=== PATIENT | male | born 1945 | race Caucasian/White ===

== ENCOUNTER 2020-02-09 09:48 | Inpatient (IN) ==
[2020-02-09] MEDS ORDERED: Benzonatate 100 MG CAPSULE PO PRN (15:57)
[2020-02-09] MEDS: Metoprolol 100 MG TABLET PO SCH (20:04)
[2020-02-09] MEDS: Acetaminophen 325 MG TABLET PO PRN (20:05)
[2020-02-10 05:30] LABS: INR 1.6; Prothrombin Time 18.3 Seconds (9.4-12.1)
[2020-02-10 05:45] LABS: Alanine Aminotransferase 13 Units/L (7-52); Albumin 3.5 g/dL (3.5-5.7); Albumin/Globulin Ratio 1.1 (1.1-2.2); Alkaline Phosphatase 37 Units/L (34-104); Aspartate Amino Transferase 16 Units/L (13-39); BUN/Creatinine Ratio 22 (6-26); Bilirubin,Total 0.5 mg/dL (0.3-1.0); Blood Urea Nitrogen 15 mg/dL (8-23); Carbon Dioxide 27 mEq/L (23-29); Chloride 108 mEq/L (98-107); Globulin 3.1 g/dL (2.4-3.5); Glucose 96 mg/dL (70-105); Magnesium 1.8 mg/dL (1.6-2.6); Osmolality,Calculated 291 (280-300); Potassium 4.3 mEq/L (3.5-5.1); Sodium 140 mEq/L (136-145); Total Protein 6.6 g/dL (6.4-8.9); eGFR For African Americans > 60 (> 60); eGFR For Non-African Americans > 60 (> 60)
[2020-02-10] MEDS: Metoprolol 100 MG TABLET PO SCH ×2 (08:59→20:53)
[2020-02-10] MEDS: Ascorbic Acid 500 MG TABLET PO SCH (08:59)
[2020-02-10] MEDS: Aspirin 81 MG TAB.CHEW PO SCH (08:59)
[2020-02-10] MEDS: *HR* Enoxaparin 80 MG/0.8 ML SYRINGE SQ SCH (17:20)
[2020-02-10] MEDS ORDERED: *HR* Warfarin 7.5 MG TABLET PO ONE (18:00)
[2020-02-10] MEDS ORDERED: *HR* Warfarin 7.5 MG TABLET PO SCH (18:00)
[2020-02-10] MEDS ORDERED: Warfarin perPT PO PRN (18:00)
[2020-02-10] MEDS: Acetaminophen 325 MG TABLET PO PRN (20:53)
[2020-02-11] MEDS: *HR* Enoxaparin 80 MG/0.8 ML SYRINGE SQ SCH (05:15)
[2020-02-11 05:30] LABS: INR 1.5; Prothrombin Time 16.9 Seconds (9.4-12.1)
[2020-02-11] MEDS: Ascorbic Acid 500 MG TABLET PO SCH (07:36)
[2020-02-11] MEDS: Metoprolol 100 MG TABLET PO SCH ×2 (07:36→08:30)
[2020-02-11] MEDS: Aspirin 81 MG TAB.CHEW PO SCH (07:36)
[2020-02-11] MEDS: Acetaminophen 325 MG TABLET PO PRN (07:36)
[2020-02-11 08:13] VITALS: BP 110/81
[2020-02-11 08:49] LABS: Basophils % 0.4 %; Eosinophils # 0.2 K/mcL (0.0-0.6); Eosinophils % 1.9 %; Hematocrit 44.2 % (37.5-50.1); Hemoglobin 15.2 g/dL (12.9-16.9); Immature Granulocytes % 0.3 % (0-4); Lymphocytes # 2.1 K/mcL (0.6-4.6); Lymphocytes % 21.7 %; Mean Corpuscular HGB Conc 34.4 g/dL (31.6-35.5); Mean Corpuscular Volume 101.8 fL (83.0-100.0); Mean Platelet Volume 9.3 fL (9.4-12.4); Monocytes # 0.7 K/mcL (0.0-1.3); Monocytes % 7.4 %; Neutrophils # 6.6 K/mcL (1.6-8.9); Platelet Count 252 K/mcL (140-400); Red Blood Count 4.34 M/mcL (4.19-5.50); Red Cell Distribution Width 12.3 % (11.5-14.5); Segmented Neutrophils % 68.3 %; White Blood Count 9.6 K/mcL (4.3-11.1)
[2020-02-11 09:06] LABS: BUN/Creatinine Ratio 19 (6-26); Blood Urea Nitrogen 17 mg/dL (8-23); Carbon Dioxide 27 mEq/L (23-29); Chloride 107 mEq/L (98-107); Glucose 132 mg/dL (70-105); Magnesium 1.7 mg/dL (1.6-2.6); Osmolality,Calculated 293 (280-300); Potassium 3.7 mEq/L (3.5-5.1); Sodium 140 mEq/L (136-145); Troponin I < 0.03 ng/mL (< 0.04); eGFR For African Americans > 60 (> 60); eGFR For Non-African Americans > 60 (> 60)
[2020-02-11] MEDS ORDERED: *HR* Warfarin 5 MG TABLET PO SCH (18:00)
== END 2020-02-11 10:42 | disposition short-term general hospital (02) | DRG 57 ==
LOC: INPGRE 16:38
PROVIDERS: ADMIT Family Medicine; ATTEND Family Medicine

== ENCOUNTER 2021-07-08 15:46 | Inpatient (IN) ==
[2021-07-08] MEDS ORDERED: Warfarin perPT PO PRN (18:00)
[2021-07-09] MEDS: Metoprolol 100 MG TABLET PO SCH ×3 (01:48→20:49)
[2021-07-09] MEDS ORDERED: Albuterol 2.5 MG/3 ML NEBULIZER IH SCH (04:00)
[2021-07-09] MEDS: Budesonide Neb 0.5 MG/2 ML IH SCH ×4 (04:22→21:26)
[2021-07-09] MEDS: Vitamin B Complex/Vit C/Vit E 1 EACH TABLET PO SCH (08:33)
[2021-07-09] MEDS: Aspirin 81 MG TAB.CHEW PO SCH (08:33)
[2021-07-09] MEDS: Fluconazole 100 MG TABLET PO SCH (08:33)
[2021-07-09] MEDS: *HR* Amiodarone 200 MG TABLET PO SCH (08:33)
[2021-07-09] MEDS: DilTIAZem CD (24hr) 120 MG CAP.ER.24H PO SCH (08:33)
[2021-07-09] MEDS: Cholecalciferol (D-3) 1,000 UNIT (25MCG) TABLET PO SCH (08:33)
[2021-07-09] MEDS: MAGNESIUM 30 MG PO SCH (08:34)
[2021-07-09] MEDS: Zinc Sulfate 220 MG CAPSULE PO SCH (08:34)
[2021-07-09] MEDS: Ascorbic Acid 500 MG TABLET PO SCH (08:34)
[2021-07-09] MEDS ORDERED: Albuterol 2.5 MG/3 ML NEBULIZER ONE (08:44)
[2021-07-09 10:38] LABS: INR 2.5; Prothrombin Time 27.7 Seconds (9.4-12.1)
[2021-07-09] MEDS: Albuterol 2.5 MG/3 ML NEBULIZER IH SCH ×3 (11:00→21:26)
[2021-07-09] MEDS ORDERED: *HR* Warfarin 0.5 MG TABLET PO ONE (18:00)
[2021-07-09] MEDS: Melatonin 3 MG TABLET PO SCH (20:49)
[2021-07-10] MEDS: Budesonide Neb 0.5 MG/2 ML IH SCH ×2 (04:13→08:33)
[2021-07-10] MEDS: Albuterol 2.5 MG/3 ML NEBULIZER IH SCH ×2 (04:13→08:33)
[2021-07-10 06:09] LABS: Basophils # 0.1 K/mcL (0.0-0.2); Basophils % 0.4 %; Eosinophils # 0.3 K/mcL (0.0-0.6); Eosinophils % 1.4 %; Hematocrit 26.2 % (37.5-50.1); Hemoglobin 8.3 g/dL (12.9-16.9); Immature Granulocytes % 4.8 % (0-4); Lymphocytes # 2.9 K/mcL (0.6-4.6); Lymphocytes % 16.4 %; Mean Corpuscular HGB Conc 31.7 g/dL (31.6-35.5); Mean Corpuscular Hemoglobin 29.3 pg (28.0-33.3); Mean Corpuscular Volume 92.6 fL (83.0-100.0); Mean Platelet Volume 8.8 fL (9.4-12.4); Monocytes # 1.3 K/mcL (0.0-1.3); Monocytes % 7.5 %; Neutrophils # 12.3 K/mcL (1.6-8.9); Nucleated Red Blood Cells 0.1 /100 WBC (0); Platelet Count 380 K/mcL (140-400); Red Blood Count 2.83 M/mcL (4.19-5.50); Red Cell Distribution Width 17.6 % (11.5-14.5); Segmented Neutrophils % 69.5 %; White Blood Count 17.7 K/mcL (4.3-11.1)
[2021-07-10 06:18] LABS: INR 2.3
[2021-07-10 06:38] LABS: Alanine Aminotransferase 27 Units/L (7-52); Albumin 2.6 g/dL (3.5-5.7); Alkaline Phosphatase 40 Units/L (34-104); Aspartate Amino Transferase 18 Units/L (13-39); BUN/Creatinine Ratio 28 (6-26); Bilirubin,Total 0.3 mg/dL (0.3-1.0); Blood Urea Nitrogen 20 mg/dL (8-23); Calcium 7.7 mg/dL (8.6-10.3); Carbon Dioxide 27 mEq/L (23-29); Chloride 102 mEq/L (98-107); Globulin 2.5 g/dL (2.4-3.5); Glucose 71 mg/dL (70-105); Osmolality,Calculated 279 (280-300); Potassium 4.3 mEq/L (3.5-5.1); Sodium 134 mEq/L (136-145); Total Protein 5.1 g/dL (6.4-8.9); eGFR For African Americans > 60 (> 60); eGFR For Non-African Americans > 60 (> 60)
[2021-07-10] MEDS: Zinc Sulfate 220 MG CAPSULE PO SCH (08:04)
[2021-07-10] MEDS: DilTIAZem CD (24hr) 120 MG CAP.ER.24H PO SCH (08:04)
[2021-07-10] MEDS: Aspirin 81 MG TAB.CHEW PO SCH (08:04)
[2021-07-10] MEDS: Vitamin B Complex/Vit C/Vit E 1 EACH TABLET PO SCH (08:04)
[2021-07-10] MEDS: Cholecalciferol (D-3) 1,000 UNIT (25MCG) TABLET PO SCH (08:04)
[2021-07-10] MEDS: Ascorbic Acid 500 MG TABLET PO SCH (08:04)
[2021-07-10] MEDS: Metoprolol 100 MG TABLET PO SCH ×2 (08:04→19:57)
[2021-07-10] MEDS: MAGNESIUM 30 MG PO SCH (08:05)
[2021-07-10] MEDS: *HR* Amiodarone 200 MG TABLET PO SCH (08:05)
[2021-07-10] MEDS: Fluconazole 100 MG TABLET PO SCH (08:05)
[2021-07-10] MEDS ORDERED: Albuterol 2.5 MG/3 ML NEBULIZER IH PRN (10:59)
[2021-07-10] MEDS ORDERED: Budesonide Neb 0.5 MG/2 ML IH PRN (10:59)
[2021-07-10] MEDS: Acetaminophen 325 MG TABLET PO PRN (17:55)
[2021-07-10] MEDS ORDERED: *HR* Warfarin 0.5 MG TABLET PO ONE (19:30)
[2021-07-10] MEDS: Melatonin 3 MG TABLET PO SCH (21:59)
[2021-07-11 05:08] LABS: INR 1.8; Prothrombin Time 20.1 Seconds (9.4-12.1)
[2021-07-11] MEDS: MAGNESIUM 30 MG PO SCH (07:55)
[2021-07-11] MEDS: Vitamin B Complex/Vit C/Vit E 1 EACH TABLET PO SCH (08:05)
[2021-07-11] MEDS: Metoprolol 100 MG TABLET PO SCH ×2 (08:05→21:41)
[2021-07-11] MEDS: Zinc Sulfate 220 MG CAPSULE PO SCH (08:05)
[2021-07-11] MEDS: DilTIAZem CD (24hr) 120 MG CAP.ER.24H PO SCH (08:05)
[2021-07-11] MEDS: *HR* Amiodarone 200 MG TABLET PO SCH (08:05)
[2021-07-11] MEDS: Ascorbic Acid 500 MG TABLET PO SCH (08:05)
[2021-07-11] MEDS: Fluconazole 100 MG TABLET PO SCH (08:05)
[2021-07-11] MEDS: Aspirin 81 MG TAB.CHEW PO SCH (08:05)
[2021-07-11] MEDS: Cholecalciferol (D-3) 1,000 UNIT (25MCG) TABLET PO SCH (08:06)
[2021-07-11 13:51] LABS: Basophils % 0.2 %; Eosinophils # 0.3 K/mcL (0.0-0.6); Eosinophils % 1.7 %; Hematocrit 26.1 % (37.5-50.1); Hemoglobin 8.1 g/dL (12.9-16.9); Immature Granulocytes % 3.6 % (0-4); Lymphocytes # 1.7 K/mcL (0.6-4.6); Lymphocytes % 9.7 %; Mean Corpuscular Hemoglobin 29.1 pg (28.0-33.3); Mean Corpuscular Volume 93.9 fL (83.0-100.0); Mean Platelet Volume 8.8 fL (9.4-12.4); Monocytes # 1.3 K/mcL (0.0-1.3); Monocytes % 7.2 %; Neutrophils # 13.8 K/mcL (1.6-8.9); Nucleated Red Blood Cells 0.1 /100 WBC (0); Platelet Count 338 K/mcL (140-400); Red Blood Count 2.78 M/mcL (4.19-5.50); Red Cell Distribution Width 17.5 % (11.5-14.5); Segmented Neutrophils % 77.6 %; White Blood Count 17.8 K/mcL (4.3-11.1)
[2021-07-11 13:53] LABS: BUN/Creatinine Ratio 31 (6-26); Blood Urea Nitrogen 25 mg/dL (8-23); Calcium 7.7 mg/dL (8.6-10.3); Carbon Dioxide 29 mEq/L (23-29); Chloride 104 mEq/L (98-107); Glucose 93 mg/dL (70-105); Osmolality,Calculated 290 (280-300); Potassium 4.2 mEq/L (3.5-5.1); Sodium 138 mEq/L (136-145); eGFR For African Americans > 60 (> 60); eGFR For Non-African Americans > 60 (> 60)
[2021-07-11] MEDS ORDERED: *HR* Warfarin 1 MG TABLET PO ONE (18:00)
[2021-07-11] MEDS ORDERED: *HR* Warfarin 0.5 MG TABLET PO ONE (18:00)
[2021-07-11] MEDS: Melatonin 3 MG TABLET PO SCH (21:46)
[2021-07-12 06:03] LABS: INR 1.4; Prothrombin Time 15.7 Seconds (9.4-12.1)
[2021-07-12] MEDS: Fluconazole 100 MG TABLET PO SCH (07:42)
[2021-07-12] MEDS: Zinc Sulfate 220 MG CAPSULE PO SCH (07:42)
[2021-07-12] MEDS: Vitamin B Complex/Vit C/Vit E 1 EACH TABLET PO SCH (07:42)
[2021-07-12] MEDS: Ascorbic Acid 500 MG TABLET PO SCH (07:42)
[2021-07-12] MEDS: Metoprolol 100 MG TABLET PO SCH ×2 (07:42→19:54)
[2021-07-12] MEDS: DilTIAZem CD (24hr) 120 MG CAP.ER.24H PO SCH (07:42)
[2021-07-12] MEDS: Cholecalciferol (D-3) 1,000 UNIT (25MCG) TABLET PO SCH (07:42)
[2021-07-12] MEDS: Aspirin 81 MG TAB.CHEW PO SCH (07:42)
[2021-07-12] MEDS: Acetaminophen 325 MG TABLET PO PRN (07:43)
[2021-07-12] MEDS: *HR* Amiodarone 200 MG TABLET PO SCH (07:43)
[2021-07-12] MEDS: MAGNESIUM 30 MG PO SCH (07:43)
[2021-07-12] MEDS ORDERED: Lidocaine Jelly 11 ml Syringe TP ONE ×2 (09:36→09:45)
[2021-07-12] MEDS ORDERED: Lidocaine Jelly 11 ml Syringe ONE (09:54)
[2021-07-12 11:30] LABS: Bilirubin,Urine Negative (Negative); Blood,Urine Negative (Negative); Clarity,Urine Clear (Clear); Color,Urine Yellow (Yellow); Glucose,Urine (UA) Normal (Normal); Ketones,Urine Negative (Negative); Leukocyte Esterase,Urine Negative (Negative); Nitrite,Urine Negative (Negative); Protein,Urine Negative (Neg-Trace); Urobilinogen,Urine Normal (Normal)
[2021-07-12] MEDS ORDERED: *HR* Warfarin 2.5 MG TABLET PO ONE (18:00)
[2021-07-12] MEDS: Melatonin 3 MG TABLET PO SCH (19:54)
[2021-07-13 05:04] LABS: INR 1.3; Prothrombin Time 14.4 Seconds (9.4-12.1)
[2021-07-13] MEDS: Acetaminophen 325 MG TABLET PO PRN (07:20)
[2021-07-13] MEDS: Ascorbic Acid 500 MG TABLET PO SCH (07:20)
[2021-07-13] MEDS: MAGNESIUM 30 MG PO SCH (07:21)
[2021-07-13] MEDS: Zinc Sulfate 220 MG CAPSULE PO SCH (07:21)
[2021-07-13] MEDS: *HR* Amiodarone 200 MG TABLET PO SCH (07:21)
[2021-07-13] MEDS: Metoprolol 100 MG TABLET PO SCH ×2 (07:21→20:05)
[2021-07-13] MEDS: Aspirin 81 MG TAB.CHEW PO SCH (07:21)
[2021-07-13] MEDS: Fluconazole 100 MG TABLET PO SCH (07:21)
[2021-07-13] MEDS: DilTIAZem CD (24hr) 120 MG CAP.ER.24H PO SCH (07:21)
[2021-07-13] MEDS: Vitamin B Complex/Vit C/Vit E 1 EACH TABLET PO SCH (07:21)
[2021-07-13] MEDS: Cholecalciferol (D-3) 1,000 UNIT (25MCG) TABLET PO SCH (07:21)
[2021-07-13] MEDS ORDERED: *HR* Warfarin 2.5 MG TABLET PO ONE (18:00)
[2021-07-13] MEDS ORDERED: *HR* Warfarin 5 MG TABLET PO ONE (18:00)
[2021-07-13] MEDS: Melatonin 3 MG TABLET PO SCH (20:05)
[2021-07-14] MEDS: Acetaminophen 325 MG TABLET PO PRN (05:58)
[2021-07-14 06:11] LABS: INR 1.4; Prothrombin Time 15.5 Seconds (9.4-12.1)
[2021-07-14] MEDS: Vitamin B Complex/Vit C/Vit E 1 EACH TABLET PO SCH (07:49)
[2021-07-14] MEDS: DilTIAZem CD (24hr) 120 MG CAP.ER.24H PO SCH (07:49)
[2021-07-14] MEDS: Cholecalciferol (D-3) 1,000 UNIT (25MCG) TABLET PO SCH (07:49)
[2021-07-14] MEDS: Aspirin 81 MG TAB.CHEW PO SCH (07:49)
[2021-07-14] MEDS: Ascorbic Acid 500 MG TABLET PO SCH (07:50)
[2021-07-14] MEDS: Fluconazole 100 MG TABLET PO SCH (07:50)
[2021-07-14] MEDS: Zinc Sulfate 220 MG CAPSULE PO SCH (07:50)
[2021-07-14] MEDS: Metoprolol 100 MG TABLET PO SCH ×2 (07:50→22:03)
[2021-07-14] MEDS: *HR* Amiodarone 200 MG TABLET PO SCH (07:50)
[2021-07-14] MEDS: MAGNESIUM 30 MG PO SCH (07:52)
[2021-07-14] MEDS ORDERED: *HR* Warfarin 4 MG TABLET PO ONE (18:00)
[2021-07-14] MEDS: Melatonin 3 MG TABLET PO SCH ×2 (22:02→22:33)
[2021-07-15 07:24] LABS: Basophils % 0.1 %; Eosinophils # 0.2 K/mcL (0.0-0.6); Hematocrit 24.8 % (37.5-50.1); Hemoglobin 7.6 g/dL (12.9-16.9); Immature Granulocytes % 0.9 % (0-4); Lymphocytes # 1.9 K/mcL (0.6-4.6); Lymphocytes % 20.2 %; Mean Corpuscular HGB Conc 30.6 g/dL (31.6-35.5); Mean Corpuscular Hemoglobin 28.9 pg (28.0-33.3); Mean Corpuscular Volume 94.3 fL (83.0-100.0); Mean Platelet Volume 8.7 fL (9.4-12.4); Monocytes # 0.9 K/mcL (0.0-1.3); Monocytes % 9.1 %; Neutrophils # 6.3 K/mcL (1.6-8.9); Platelet Count 249 K/mcL (140-400); Red Blood Count 2.63 M/mcL (4.19-5.50); Red Cell Distribution Width 17.2 % (11.5-14.5); Segmented Neutrophils % 67.7 %; White Blood Count 9.3 K/mcL (4.3-11.1)
[2021-07-15 07:25] LABS: INR 1.7; Prothrombin Time 19.1 Seconds (9.4-12.1)
[2021-07-15 07:35] LABS: BUN/Creatinine Ratio 25 (6-26); Blood Urea Nitrogen 19 mg/dL (8-23); Calcium 8.5 mg/dL (8.6-10.3); Carbon Dioxide 27 mEq/L (23-29); Chloride 104 mEq/L (98-107); Glucose 109 mg/dL (70-105); Osmolality,Calculated 285 (280-300); Sodium 136 mEq/L (136-145); eGFR For African Americans > 60 (> 60); eGFR For Non-African Americans > 60 (> 60)
[2021-07-15] MEDS: Fluconazole 100 MG TABLET PO SCH (08:11)
[2021-07-15] MEDS: Zinc Sulfate 220 MG CAPSULE PO SCH (08:12)
[2021-07-15] MEDS: Metoprolol 100 MG TABLET PO SCH ×2 (08:12→21:41)
[2021-07-15] MEDS: Cholecalciferol (D-3) 1,000 UNIT (25MCG) TABLET PO SCH (08:12)
[2021-07-15] MEDS: Ascorbic Acid 500 MG TABLET PO SCH (08:12)
[2021-07-15] MEDS: Vitamin B Complex/Vit C/Vit E 1 EACH TABLET PO SCH (08:12)
[2021-07-15] MEDS: *HR* Amiodarone 200 MG TABLET PO SCH (08:12)
[2021-07-15] MEDS: DilTIAZem CD (24hr) 120 MG CAP.ER.24H PO SCH (08:13)
[2021-07-15] MEDS: Magnesium Oxide 400 MG TABLET PO SCH (08:13)
[2021-07-15] MEDS: Aspirin 81 MG TAB.CHEW PO SCH (08:13)
[2021-07-15] MEDS: Nystatin SUSP 5 ML UD.LIQ PO SCH ×2 (17:07→21:49)
[2021-07-15] MEDS ORDERED: *HR* Warfarin 4 MG TABLET PO ONE (18:00)
[2021-07-15] MEDS: Acetaminophen 325 MG TABLET PO PRN (21:48)
[2021-07-15] MEDS: Melatonin 3 MG TABLET PO SCH (21:49)
[2021-07-16 06:06] LABS: INR 2.5; Prothrombin Time 27.9 Seconds (9.4-12.1)
[2021-07-16] MEDS: Cholecalciferol (D-3) 1,000 UNIT (25MCG) TABLET PO SCH (10:17)
[2021-07-16] MEDS: Ascorbic Acid 500 MG TABLET PO SCH (10:17)
[2021-07-16] MEDS: Vitamin B Complex/Vit C/Vit E 1 EACH TABLET PO SCH (10:17)
[2021-07-16] MEDS: DilTIAZem CD (24hr) 120 MG CAP.ER.24H PO SCH (10:17)
[2021-07-16] MEDS: Nystatin SUSP 5 ML UD.LIQ PO SCH ×4 (10:17→20:14)
[2021-07-16] MEDS: *HR* Amiodarone 200 MG TABLET PO SCH (10:17)
[2021-07-16] MEDS: Magnesium Oxide 400 MG TABLET PO SCH (10:17)
[2021-07-16] MEDS: Fluconazole 100 MG TABLET PO SCH (10:17)
[2021-07-16] MEDS: Zinc Sulfate 220 MG CAPSULE PO SCH (10:17)
[2021-07-16] MEDS: Metoprolol 100 MG TABLET PO SCH ×2 (10:17→20:14)
[2021-07-16] MEDS: Aspirin 81 MG TAB.CHEW PO SCH (12:17)
[2021-07-16] MEDS: Acetaminophen 325 MG TABLET PO PRN (16:19)
[2021-07-16] MEDS ORDERED: *HR* Warfarin 3 MG TABLET PO ONE (18:00)
[2021-07-16] MEDS: Melatonin 3 MG TABLET PO SCH (20:14)
[2021-07-17] MEDS: Acetaminophen 325 MG TABLET PO PRN (03:14)
[2021-07-17 04:36] LABS: Hematocrit 24.4 % (37.5-50.1); Hemoglobin 7.5 g/dL (12.9-16.9); Mean Corpuscular HGB Conc 30.7 g/dL (31.6-35.5); Mean Corpuscular Hemoglobin 28.7 pg (28.0-33.3); Mean Corpuscular Volume 93.5 fL (83.0-100.0); Mean Platelet Volume 8.4 fL (9.4-12.4); Platelet Count 207 K/mcL (140-400); Red Blood Count 2.61 M/mcL (4.19-5.50); Red Cell Distribution Width 17.2 % (11.5-14.5); White Blood Count 9.3 K/mcL (4.3-11.1)
[2021-07-17 04:41] LABS: INR 3.1; Prothrombin Time 34.3 Seconds (9.4-12.1)
[2021-07-17 04:52] LABS: Alanine Aminotransferase 15 Units/L (7-52); Albumin 2.6 g/dL (3.5-5.7); Albumin/Globulin Ratio 1.1 (1.1-2.2); Alkaline Phosphatase 41 Units/L (34-104); Aspartate Amino Transferase 13 Units/L (13-39); BUN/Creatinine Ratio 25 (6-26); Bilirubin,Total 0.2 mg/dL (0.3-1.0); Blood Urea Nitrogen 21 mg/dL (8-23); Calcium 8.4 mg/dL (8.6-10.3); Carbon Dioxide 25 mEq/L (23-29); Chloride 107 mEq/L (98-107); Globulin 2.4 g/dL (2.4-3.5); Glucose 98 mg/dL (70-105); Magnesium 1.7 mg/dL (1.6-2.6); Osmolality,Calculated 287 (280-300); Potassium 4.5 mEq/L (3.5-5.1); Sodium 137 mEq/L (136-145); eGFR For African Americans > 60 (> 60); eGFR For Non-African Americans > 60 (> 60)
[2021-07-17 07:15] VITALS: RESP 16
[2021-07-17] MEDS: Vitamin B Complex/Vit C/Vit E 1 EACH TABLET PO SCH (09:01)
[2021-07-17] MEDS: Aspirin 81 MG TAB.CHEW PO SCH (09:01)
[2021-07-17] MEDS: Zinc Sulfate 220 MG CAPSULE PO SCH (09:01)
[2021-07-17] MEDS: Nystatin SUSP 5 ML UD.LIQ PO SCH ×4 (09:01→19:34)
[2021-07-17] MEDS: Fluconazole 100 MG TABLET PO SCH (09:01)
[2021-07-17] MEDS: *HR* Amiodarone 200 MG TABLET PO SCH (09:01)
[2021-07-17] MEDS: Cholecalciferol (D-3) 1,000 UNIT (25MCG) TABLET PO SCH (09:01)
[2021-07-17] MEDS: Ascorbic Acid 500 MG TABLET PO SCH (09:01)
[2021-07-17] MEDS: Magnesium Oxide 400 MG TABLET PO SCH (09:02)
[2021-07-17] MEDS: DilTIAZem CD (24hr) 120 MG CAP.ER.24H PO SCH (09:02)
[2021-07-17] MEDS: Metoprolol 100 MG TABLET PO SCH ×2 (09:02→19:33)
[2021-07-17] MEDS ORDERED: *HR* Warfarin 1 MG TABLET PO ONE (18:00)
[2021-07-17] MEDS: Melatonin 3 MG TABLET PO SCH (19:34)
[2021-07-18 05:09] LABS: INR 3.4; Prothrombin Time 37.4 Seconds (9.4-12.1)
[2021-07-18] MEDS: Acetaminophen 325 MG TABLET PO PRN (05:48)
[2021-07-18 07:35] VITALS: BP 86/52; PULSE 73; TEMP 98.4; O2SAT 97
[2021-07-18] MEDS: Metoprolol 100 MG TABLET PO SCH (08:22)
[2021-07-18] MEDS: Zinc Sulfate 220 MG CAPSULE PO SCH (08:22)
[2021-07-18] MEDS: Ascorbic Acid 500 MG TABLET PO SCH (08:22)
[2021-07-18] MEDS: Vitamin B Complex/Vit C/Vit E 1 EACH TABLET PO SCH (08:22)
[2021-07-18] MEDS: Fluconazole 100 MG TABLET PO SCH (08:22)
[2021-07-18] MEDS: *HR* Amiodarone 200 MG TABLET PO SCH (08:22)
[2021-07-18] MEDS: Aspirin 81 MG TAB.CHEW PO SCH (08:22)
[2021-07-18] MEDS: Magnesium Oxide 400 MG TABLET PO SCH (08:23)
[2021-07-18] MEDS: Cholecalciferol (D-3) 1,000 UNIT (25MCG) TABLET PO SCH (08:23)
[2021-07-18] MEDS: DilTIAZem CD (24hr) 120 MG CAP.ER.24H PO SCH (08:23)
[2021-07-18 09:35] LABS: Basophils % 0.1 %; Eosinophils # 0.2 K/mcL (0.0-0.6); Eosinophils % 2.1 %; Hematocrit 26.6 % (37.5-50.1); Hemoglobin 8.1 g/dL (12.9-16.9); Immature Granulocytes % 0.4 % (0-4); Lymphocytes # 1.4 K/mcL (0.6-4.6); Lymphocytes % 13.8 %; Mean Corpuscular HGB Conc 30.5 g/dL (31.6-35.5); Mean Corpuscular Hemoglobin 28.4 pg (28.0-33.3); Mean Corpuscular Volume 93.3 fL (83.0-100.0); Mean Platelet Volume 8.5 fL (9.4-12.4); Monocytes # 0.6 K/mcL (0.0-1.3); Monocytes % 6.3 %; Neutrophils # 7.6 K/mcL (1.6-8.9); Platelet Count 214 K/mcL (140-400); Red Blood Count 2.85 M/mcL (4.19-5.50); Segmented Neutrophils % 77.3 %; White Blood Count 9.8 K/mcL (4.3-11.1)
[2021-07-18 10:11] LABS: BUN/Creatinine Ratio 26 (6-26); Blood Urea Nitrogen 21 mg/dL (8-23); Calcium 8.7 mg/dL (8.6-10.3); Carbon Dioxide 26 mEq/L (23-29); Chloride 105 mEq/L (98-107); Glucose 129 mg/dL (70-105); Osmolality,Calculated 289 (280-300); Sodium 137 mEq/L (136-145); eGFR For African Americans > 60 (> 60); eGFR For Non-African Americans > 60 (> 60)
== END 2021-07-18 12:03 | disposition home health service (06) ==
LOC: INPGRE 07-09 00:41
PROVIDERS: ADMIT Family Medicine; ATTEND Family Medicine